=== PATIENT | female | born 1940 | race Caucasian/White ===

== ENCOUNTER → 2017-07-04 | Day surgery (SDC) | payer OTHER ==
[~2017-07-04] VITALS: Ht 157.5 cm; Wt 62.6 kg
[~2017-07-04] MED LIST: ASPIR 8181 M1 PO; CALTRATE PLUS1 EACH PO; COUMADIN4 MG PO; DUONEB 2.5-0.5 M3 ML AEROSOL; FOLIC ACID1 MG PO; FOSRENOL1000 MG PO; INSULIN SLIDING SCAL; IRON325 M1 PO; NITROSTAT0.4 MG SL; PLAVIX75 MG PO; PROTONIX40 MG PO; SYNTHROID150 MCG PO; ZOFRAN4 MG PO
[2017-07-04 10:27] LABS: POINT-OF-CARE METER ID UU14174212
[2017-07-04 10:30] LABS: HEMATOCRIT 36.1 % (36.0-46.0); MCH 33.4 PG (29.0-34.0); MCHC 30.2 G/DL (30.0-36.0); MCV 110.7 FL (83-99); MEAN PLAT.VOLUME 9.6 uM^3 (9.5-12.4); PLATELET COUNT 176 K/uL (156-360); RBC DIS.WIDTH-CV 19.3 % (11.8-14.6); RBC DIS.WIDTH-SD 79.6 % (39-53); RED BLOOD COUNT 3.26 M/uL (3.80-5.20); WHITE BLOOD COUNT 4.2 K/uL (4.1-10.2)
[2017-07-04 10:35] VITALS: BP 118/58
[2017-07-04 10:36] LABS: INTER. NORMALIZED RATIO 2.2
[2017-07-04 10:39] LABS: PTT 32.6 SEC (25-37)
[2017-07-04 10:48] LABS: CHLORIDE 98 mEq/L (99-109); POTASSIUM 4.3 mEq/L (3.7-5.4); SODIUM 145 mEq/L (136-147)
[2017-07-04 10:50] LABS: GLUCOSE 91 mg/dL (70-99)
[2017-07-04 10:51] LABS: ANION GAP 15 MEQ/L (2-14)
[2017-07-04 10:54] LABS: GFR ESTIMATE (CALCULATED) 8 mL/min/
[2017-07-04 10:55] LABS: UREA NITROGEN (BUN) 31 mg/dL (9-23)
[2017-07-04 11:43] LABS: METH RESISTANT S AUREUS PCR POSITIVE (NEGATIVE); PROBE CHECK PASS
== END | disposition home or self-care (01) ==
LOC: SDC 08:07
PROVIDERS: Ophthalmology Retina Specialist
DX: Z53.09 Procedure and treatment not carried out because of other contraindication (principal)
CPT/HCPCS: 80048; 82948; 85027; 85610; 85730; 87641